=== PATIENT | female | born 1960 | race Caucasian/White ===

== ENCOUNTER 2022-05-15 16:48 | Emergency (ER) | payer MEDICARE, MEDICAID ==
[~2022-05-15] VITALS: Ht 167.6 cm; Wt 100.0 kg
[2022-05-15] MEDS ORDERED: IBUPROFEN 600MG TABLET PO STA (17:13)
[2022-05-15 19:01] LABS: BASOPHILS % 0.1 % (0.0-2.0); HEMATOCRIT. 41.9 % (36.0-48.0); HEMOGLOBIN. 13.2 g/dL (12.0-16.0); LYMPHOCYTES % 8.4 % (20.0-50.0); MEAN CORPUSCULAR HEMOGLOBIN 25.8 pg (28.0-32.0); MEAN CORPUSCULAR VOLUME 82.1 fL (81.0-99.0); MEAN PLATELET VOLUME 10.3 fl (7.4-10.4); MONOCYTES % 8.2 % (2.0-8.0); NEUTROPHILS % 83.3 % (40.0-76.0); PLATELET 240 x1000/uL (130-400)
[2022-05-15 19:10] LABS: CHLORIDE 100 mEq/L (98-107)
[2022-05-15] MEDS ORDERED: NYSTATIN 100,000 UNITS/ML 5ML UDC SSW ONE (19:15)
[2022-05-15 19:19] LABS: BETA HYDROXYBUTYRATE 2.1 mMol/L (0.0-0.3)
[2022-05-15] MEDS ORDERED: SODIUM CHLORIDE 0.9% 1,000 ML IV ONE (19:45)
[2022-05-15] MEDS ORDERED: NYSTATIN 100,000 UNITS/ML 5ML UDC SSW NR (23:15)
[2022-05-15] MEDS ORDERED: IOHEXOL-300 100 ML BOTTLE ONE (23:17)
[2022-05-15] MEDS ORDERED: INSULIN LISPRO 100 UNITS/ML SUBCUT ONE (23:30)
[2022-05-16] MEDS ORDERED: INSULIN LISPRO 100 UNITS/ML SUBCUT NR (02:30)
[2022-05-16 04:10] VITALS: BP 136/82
== END 2022-05-16 04:20 | disposition home or self-care (01) ==
LOC: ER 16:48
DX: B37.0 Candidal stomatitis (principal); J06.9 Acute upper respiratory infection, unspecified; E11.65 Type 2 diabetes mellitus with hyperglycemia; N17.9 Acute kidney failure, unspecified; I10 Essential (primary) hypertension; Z79.4 Long term (current) use of insulin; R94.31 Abnormal electrocardiogram [ECG] [EKG]
CPT/HCPCS: 36415; 70491; 71045; 80053; 82010; 82962; 84484; 85025; 93005; 96372; 99285; J1815; J7030; Q9967